=== PATIENT | female | born 1940 | race Caucasian/White ===

== ENCOUNTER → 2017-03-08 | Outpatient (CLI) | payer MEDICARE, BC ==
[~2017-03-08] MED LIST: ASPI-110 PO; PRIL20TA2 PO; SACC1CAP3 PO; SIMV20TA PO; VITA10004 PO
[2017-03-08 10:33] LABS: BLOOD, URINE NEG (NEG); COMMENT (UR) CULT NOT INDICATED; CULTURE IF INDICATED CULT NOT INDICATED; GLUCOSE,URINE NEG (NEG); GRANULAR CAST, URINE 1 /lpf; HYALINE CAST, URINE 4 /lpf (RARE); KETONE, URINE NEG (NEG); MUCUS URINE MOD /lpf (OCC); NITRITE,URINE NEG (NEG); PH, URINE 5.5 (5.0-8.5); SQUAMOUS EPITHELIAL CELL URINE <1 /hpf (0-5); URINE COLOR YELLOW (YELLW/STRAW)
== END ==
LOC: CPRE 09:05
PROVIDERS: ATTEND Orthopaedic Surgery Orthopaedic Trauma
DX: Z01.812 Encounter for preprocedural laboratory examination (principal); M79.609 Pain in unspecified limb; Z79.01 Long term (current) use of anticoagulants; Z01.818 Encounter for other preprocedural examination; Z13.9 Encounter for screening, unspecified; Z96.60 Presence of unspecified orthopedic joint implant
CPT/HCPCS: 81001

== ENCOUNTER 2017-03-19 05:14 | Inpatient (IN) | payer MEDICARE, BC ==
[~2017-03-19] VITALS: Ht 175.3 cm; Wt 101.6 kg
[2017-03-19] MEDS ORDERED: METOPROLOL TARTRATE 25 MG TAB PO PRN (05:45)
[2017-03-19] MEDS ORDERED: CHLORHEXIDINE GLUCONATE 4% SOLN 120 ML BTL TOPICAL SCH (05:45)
[2017-03-19] MEDS ORDERED: SODIUM CHLORID 0.9% 500 ML IV PRN (05:45)
[2017-03-19] MEDS ORDERED: INSULIN HUMAN REGULAR 1,000 UNITS/10 ML VIAL SQ PRN (05:45)
[2017-03-19] MEDS ORDERED: CHLORHEXIDINE GLUCONATE 2 % 1 PACK (2 CLOTHS) TOPICAL PRN (05:45)
[2017-03-19] MEDS ORDERED: POVIDONE IODINE 5% (ANTISEPSIS KIT) 4 APPLICATIONS EACH NARE PRN (05:45)
[2017-03-19] MEDS ORDERED: ceFAZolin 2 GM PREMIX 50 ML IV SCH (05:45)
[2017-03-19] MEDS ORDERED: VANCOMYCIN 1000 MG/NS 250 ML (for <70 kg) IV SCH ×2 (05:45)
[2017-03-19] MEDS ORDERED: LACTATED RINGER'S 1000 ML IV PRN (05:45)
[2017-03-19 05:53] VITALS: BP 171/86; PULSE 78; RESP 16; TEMP 97.8; O2SAT 97
[2017-03-19] MEDS ORDERED: EXPAREL PERI-ARTICULAR INJECTION (TOTAL VOL. 60 ML) P-ARTICULR SCH ×2 (07:00)
[2017-03-19] MEDS ORDERED: TRANEXAMIC ACID IV SCH (07:00)
[2017-03-19] MEDS ORDERED: SODIUM CHLORIDE 0.9% IV SCH (07:00)
== END 2017-03-19 06:20 | disposition home or self-care (01) | DRG 554 ==
LOC: HSDI 05:14
PROVIDERS: ADMIT Orthopaedic Surgery Orthopaedic Trauma; ATTEND Orthopaedic Surgery Orthopaedic Trauma
DX: M16.12 Unilateral primary osteoarthritis, left hip (principal); R23.8 Other skin changes; Z53.8 Procedure and treatment not carried out for other reasons
CPT/HCPCS: 99211; C9290; G0463

== ENCOUNTER → 2017-04-05 | Outpatient (CLI) | payer MEDICARE, BC ==
[~2017-04-05] MED LIST changes: -ASPI-110 PO; +ASPI-146 PO; +ASPI1TAB57 PO; +FLUT1SPR5 EACH NARE; +HYDR-3583 PO; +WALKER/ADULT/FO1 MIS; +XARE10TA PO
[2017-04-05 11:04] LABS: AUTOMATED NEUTROPHIL # 5.3 TH/MM3 (1.8-7.7); BASOPHIL % 0.4 % (0.0-2.0); EOSINOPHIL # 0.1 TH/MM3 (0-0.4); EOSINOPHIL % 0.9 % (0.0-4.0); HEMATOCRIT 44.3 % (35.0-46.0); HEMO FLAGS DIFF FINAL; LYMPH % 27.5 % (9.0-44.0); LYMPHOCYTE # 2.3 TH/MM3 (1.0-4.8); MEAN CELL VOLUME 86.9 FL (80.0-100.0); MEAN CORPUSCULAR HEMOGLOBIN 29.1 PG (27.0-34.0); MEAN CORPUSCULAR HGB CONC 33.4 % (32.0-36.0); MONO % 7.1 % (0.0-8.0); NEUT % 64.1 % (16.0-70.0); PLATELET COUNT 282 TH/MM3 (150-450); RED BLOOD COUNT 5.09 MIL/MM3 (4.00-5.30); RED CELL DISTRIBUTION WIDTH 13.5 % (11.6-17.2); WHITE BLOOD COUNT 8.3 TH/MM3 (4.0-11.0)
[2017-04-05 11:17] LABS: APTT (PATIENT) 25.6 SEC (24.3-30.1); PROTHROMBIN TIME - PATIENT 10.5 SEC (9.8-11.6)
[2017-04-05 11:29] LABS: BLOOD, URINE NEG (NEG); COMMENT (UR) CULT NOT INDICATED; CULTURE IF INDICATED CULT NOT INDICATED; GLUCOSE,URINE NEG (NEG); KETONE, URINE NEG (NEG); MUCUS URINE FEW /lpf (OCC); NITRITE,URINE NEG (NEG); PH, URINE 5.5 (5.0-8.5); SQUAMOUS EPITHELIAL CELL URINE <1 /hpf (0-5); URINE COLOR YELLOW (YELLW/STRAW)
[2017-04-05 11:32] LABS: BICARBONATE 27.2 MEQ/L (21.0-32.0)
== END ==
LOC: CPRE 10:13
PROVIDERS: ATTEND Orthopaedic Surgery Orthopaedic Trauma
DX: Z01.812 Encounter for preprocedural laboratory examination (principal); Z01.810 Encounter for preprocedural cardiovascular examination; Z01.811 Encounter for preprocedural respiratory examination; Z01.818 Encounter for other preprocedural examination; Z13.9 Encounter for screening, unspecified; Z79.01 Long term (current) use of anticoagulants; Z96.60 Presence of unspecified orthopedic joint implant; M79.609 Pain in unspecified limb
CPT/HCPCS: 36415; 80048; 81001; 85025; 85610; 85730

== ENCOUNTER 2017-04-18 05:15 | Inpatient (IN) | payer MEDICARE, BC ==
[~2017-04-18] VITALS: Ht 175.3 cm; Wt 98.9 kg
[~2017-04-18 05:15] MED LIST changes: -ASPI-146 PO; -HYDR-3583 PO; -WALKER/ADULT/FO1 MIS; -XARE10TA PO
[2017-04-18] MEDS ORDERED: SODIUM CHLORID 0.9% 500 ML IV PRN (05:45)
[2017-04-18] MEDS ORDERED: CHLORHEXIDINE GLUCONATE 4% SOLN 120 ML BTL TOPICAL SCH (05:45)
[2017-04-18] MEDS ORDERED: POVIDONE IODINE 5% (ANTISEPSIS KIT) 4 APPLICATIONS EACH NARE PRN (05:45)
[2017-04-18] MEDS ORDERED: VANCOMYCIN 1000 MG/NS 250 ML (for <70 kg) IV SCH ×2 (05:45)
[2017-04-18] MEDS ORDERED: METOPROLOL TARTRATE 25 MG TAB PO PRN (05:45)
[2017-04-18] MEDS ORDERED: LACTATED RINGER'S 1000 ML IV PRN (05:45)
[2017-04-18] MEDS ORDERED: CHLORHEXIDINE GLUCONATE 2 % 1 PACK (2 CLOTHS) TOPICAL PRN (05:45)
[2017-04-18] MEDS ORDERED: ceFAZolin 2 GM PREMIX 50 ML IV SCH (05:45)
[2017-04-18] MEDS ORDERED: GENTAMICIN SULFATE 80 MG/2 ML VIAL ONE (06:32)
[2017-04-18] MEDS ORDERED: ACETAMINOPHEN 1000 MG/100 ML 100 ML IV ONE ×3 (06:42→11:30)
[2017-04-18] MEDS ORDERED: SODIUM CHLORIDE 0.9% IV SCH (07:00)
[2017-04-18] MEDS ORDERED: TRANEXAMIC ACID IV SCH (07:00)
[2017-04-18] MEDS ORDERED: EXPAREL PERI-ARTICULAR INJECTION (TOTAL VOL. 60 ML) P-ARTICULR SCH ×2 (07:00)
[2017-04-18] MEDS ORDERED: HYDR-3583 PO (08:30)
[2017-04-18] MEDS ORDERED: WALKER/ADULT/FO1 MIS (08:30)
[2017-04-18] MEDS ORDERED: ASPI-146 PO (08:30)
[2017-04-18] MEDS ORDERED: XARE10TA PO (08:30)
[2017-04-18] MEDS: PRAVASTATIN SOD 40 MG TAB PO SCH (09:00)
[2017-04-18] MEDS: PANTOPRAZOLE SOD 20 MG DELAYED RELEASE TAB PO SCH (09:00)
[2017-04-18] MEDS: CYANOCOBALAMIN 1,000 MCG TAB PO SCH (09:00)
[2017-04-18] MEDS ORDERED: NON-FORMULARY DRUG (Saccharomyces Boulardii (Probiotic) 250 MG) PO SCH (09:00)
--- NOTE | 2017-04-18 09:06 | PD.OP ---
cc: Erick Hernandez MD Operative Report Date of Surgery: Apr 18, 2017 Preoperative Diagnosis: Severe left hip osteoarthritis Postoperative Diagnosis: Same Procedure: Total hip arthroplasty via anterior approach Anesthesia: Gen. Surgeon: Erick Hernandez Patent Law Specialist(s): SYLVIA Jurado PA-C The surgical procedure was assisted by my physician assistant broker. My P.A. presence was necessary throughout this case for the manipulation and positioning of the surgical extremity. My P.A. was assisting me throughout the duration of this procedure. The skill set of a physician assistant broker was medically necessary to complete this procedure. During the surgical case the surgical garment assembly supervisor was working at the back table and the physician assistant broker was directly assisting me. Operation and Findings: PLAN OF ACTIVITY Weight bear as tolerated. DRAINS: 7-mm VICKI drain. IMPLANTS USED DePuy Corail size 11 collared stem with a size [52] Brashear Gription cup, [52/ 36] Altrx poly liner, and a [36+1 metal head. DETAILS OF PROCEDURE: This patient has a long history of hip pain. Patient was found to have severe osteoarthritis. The patient had radiographic evidence of joint space narrowing with [id number] arthritis and osteophytes around the acetabulum as well as the femoral head. There was also some cystic changes. The patient failed conservative treatment with pain medications, anti-inflammatories, physical therapy, assistive devices including a cane, as well as therapeutic injection of the hip. Patient's hip arthritis was limiting his ability to ambulate and perform activities of daily living. The patient wished to proceed with surgery and informed consent was obtained. Operative site was marked. I discussed both posterior approach and anterior approach with the patient and decision was made for anterior approach. Patient was brought to OR and placed on OR table. IV sedation and general anesthesia was administered by anesthesiologist. Patient positioned on a Marizol table and was given IV antibiotics. Time-out procedure was performed. The hip and thigh were prepped with alcohol followed by Hibiclens. The thigh was draped in the usual sterile fashion. Clean Air Suite was used for this procedure. The procedure began with a 5-inch incision over the anterolateral thigh. Subcutaneous tissue was dissected with Bovie. The fascia over the tensa fasciae latae was incised. Care was taken to avoid injury to the lateral femoral cutaneous nerve. The tensor muscle was retracted laterally. Sartorius was retracted medially. Retractors were now placed. The reflected head of the rectus is now elevated. A capsulotomy was performed over the anterior head capsule. Sutures were placed to help retract the capsule. At this point the femoral head and neck were identified. With soft tissue protected, oscillating saw was used to make a cut through the femoral neck, the femoral head was now removed. At this point attention was turned to preparation of the acetabulum. The labrum was excised. The acetabulum was sequentially reamed up to size [52]. A Brashear cup was now placed. Fluoroscopy was used to aid in identification of appropriate version. Cup was fully impacted and found to have excellent fit. Hole eliminator was now placed. The liner was now impacted into the cup. At this point the hip was externally rotated. A hook was placed around the proximal femur. The capsule was released off the lateral and medial femur. The hip was now extended and adducted. Retractors were placed around the proximal femur to allow for exposure. A box osteotome was used to remove the lateral cortex of the femoral neck. A broach was used to help lateralize the prosthesis. Canal finder was used to create a path down the canal. Next, the canal was sequentially broached up to size [11]. This was found to be an excellent fit. Calcar planer was placed. A standard head was placed, and the hip was reduced. The hip was found to have excellent stability with good range of motion. The leg lengths were measured under fluoroscopy and found to be equal compared to preoperatively. Trial broach was removed. The Corail stem was opened. Stem was fully impacted into the proximal femur in appropriate version. The femoral head was placed. The hip was again reduced. Fluoroscopy confirmed excellent alignment of prosthesis. The wound was thoroughly irrigated and capsule was closed with #1 Vicryl. The fascia over the tensor fasciae muscle was closed with #1 Vicryl, subcutaneous tissue was closed with 3-0 Vicryl and the skin was closed with charles and Dermabond skin closure. The capsule layers, muscle, and subcutaneous tissue were injected with a mixture of saline and bupivicaine. Dressings were applied. The patient was transferred to Recovery Room in stable condition. Erick Hernandez MD Apr 18, 2017 09:06
[2017-04-18] MEDS ORDERED: DO NOT ADM ANY ANTICOAGULANT DRUGS PRN (09:33)
[2017-04-18] MEDS: LACTATED RINGER'S 1000 ML INJ 1,000 ML IV SCH ×2 (09:50→22:30)
[2017-04-18] MEDS ORDERED: *morphine SULFATE 8 MG/ML PERIprocedure ONLY ONE ×3 (09:55→10:18)
[2017-04-18] MEDS ORDERED: SODIUM CHLORIDE 0.9% FLUSH 5 ML FLUSH IVF PRN (10:00)
[2017-04-18] MEDS ORDERED: ONDANSETRON HCL 4 MG/2 ML VIAL IVP PRN (10:00)
[2017-04-18] MEDS ORDERED: MORPHINE SULFATE 4 MG/ML INJ IV PUSH PRN (10:00)
[2017-04-18] MEDS ORDERED: NALOXONE HCL 0.4 MG/ML AMP IV PUSH PRN (10:00)
[2017-04-18] MEDS ORDERED: TRANEXAMIC ACID INJ 1,000 MG in SODIUM CHLORIDE 0.9% INJ 100 ML IV ONE (10:00)
[2017-04-18] MEDS ORDERED: Post-op Orders (for Pharmacy) MISC XX ONE (10:00)
--- NOTE | 2017-04-18 10:18 | RADRPT ---
EXAM DATE/TIME: 04/18/2017 08:26 [facility] COMPARISON: No previous studies available for comparison. INDICATIONS : Left total hip replacement MEDICAL HISTORY : None. SURGICAL HISTORY : None. ENCOUNTER: Initial ACUITY: 1 day PAIN SCORE: Non-responsive. LOCATION: Left Hip FINDINGS: A two view examination of the left hip was performed. Total left hip arthroplasty. Both the acetabula r and femoral components are currently positioned. No fracture. CONCLUSION: Appropriate postoperative appearance of the left hip status post total arthroplasty. Hemanth Villa MD on April 18, 2017 at 10:16 Board Certified Radiologist. This report was verified electronically.
--- NOTE | 2017-04-18 10:20 | RADRPT ---
EXAM DATE/TIME: 04/18/2017 09:55 [facility] COMPARISON: No previous studies available for comparison. INDICATIONS : Post left hip surgery. MEDICAL HISTORY : None. SURGICAL HISTORY : None. ENCOUNTER: Initial ACUITY: 1 day PAIN SCORE: 8/10 LOCATION: Left hip and pelvis FINDINGS: A lateral view of the left hip with AP pelvis was obtained. Left total hip arthroplasty. VICKI type drai n projects lateral to the femoral component. Femoral and acetabular components are appropriately posi tioned. No fracture. CONCLUSION: 1. Appropriate postoperative appearance of the left hip status post total arthroplasty. 2. VICKI type drain projects lateral to the proximal shaft of the femoral prostheses. Hemanth Villa MD on April 18, 2017 at 10:17 Board Certified Radiologist. This report was verified electronically.
[2017-04-18] MEDS: KETOROLAC TROMETHAMINE 30 MG/ML (IVP) VIAL IV PUSH SCH ×2 (10:21→21:53)
[2017-04-18] MEDS ORDERED: MIDAZOLAM HCL 2 MG/2 ML VIAL IV ONE (12:00)
[2017-04-18] MEDS ORDERED: GLYCOPYRROLATE 1 MG/5 ML SYRINGE IV PUSH ONE (12:00)
[2017-04-18] MEDS ORDERED: ONDANSETRON HCL 4 MG/2 ML VIAL IV PUSH ONE (12:00)
[2017-04-18] MEDS ORDERED: LIDOCAINE HCL 1% PF 5 ML AMPULE OTHER ONE (12:00)
[2017-04-18] MEDS ORDERED: NEOSTIGMINE 3 MG/3 ML SYR IV ONE (12:00)
[2017-04-18] MEDS ORDERED: DEXAMETHASONE SOD PHOS 4 MG/ML VIAL IV ONE (12:00)
[2017-04-18] MEDS ORDERED: ROCURONIUM INJ 50 MG/5 ML SYRINGE IV PUSH ONE (12:00)
[2017-04-18] MEDS ORDERED: PHENYLEPH/NS 1000 MCG/10 ML SYR IV ONE (12:00)
[2017-04-18] MEDS ORDERED: PROPOFOL 200 MG/20 ML AMP IV ONE (12:00)
[2017-04-18] MEDS ORDERED: ePHEDrine/NS 25 MG/5 ML SYR IV ONE (12:00)
[2017-04-18 13:00] VITALS: BP 142/74; PULSE 70; RESP 18; TEMP 97; O2SAT 94
[2017-04-18] MEDS: ceFAZolin 2 GM PREMIX 50 ML IV SCH ×2 (13:28→20:52)
[2017-04-18] MEDS: ACETAMINOPHEN/HYDROcodone 325 MG/7.5 MG TAB PO PRN (13:53)
[2017-04-18] MEDS ORDERED: ACETAMINOPHEN/HYDROcodone 325 MG/7.5 MG TAB PO ONE (14:30)
[2017-04-18 16:15] VITALS: BP 133/70; PULSE 62; RESP 16; O2SAT 98
[2017-04-18] MEDS: VANCOMYCIN INJ 1,000 MG in SODIUM CHLOR 0.9% 250 ML INJ 250 ML IV SCH (17:08)
[2017-04-18 19:20] VITALS: BP 123/58; PULSE 69; RESP 16; TEMP 96.7; O2SAT 98
[2017-04-18] MEDS: SODIUM CHLORIDE 0.9% FLUSH 5 ML FLUSH IVF SCH (20:52)
[2017-04-18] MEDS: ACETAMINOPHEN/HYDROcodone 325 MG/10 MG TAB PO PRN (20:52)
[2017-04-18] MEDS: FLUTICASONE PROPIONATE 50 MCG/ACT 16 GM NASAL SPRAY NASAL SCH (21:53)
[2017-04-18 23:56] VITALS: BP 103/51; PULSE 72; RESP 16; TEMP 96.7; O2SAT 97
[2017-04-19] MEDS: ceFAZolin 2 GM PREMIX 50 ML IV SCH (02:39)
[2017-04-19 03:31] VITALS: BP 120/58; PULSE 67; RESP 17; TEMP 96.7; O2SAT 95
[2017-04-19] MEDS: ACETAMINOPHEN/HYDROcodone 325 MG/7.5 MG TAB PO PRN ×2 (06:04→12:06)
[2017-04-19] MEDS: VANCOMYCIN INJ 1,000 MG in SODIUM CHLOR 0.9% 250 ML INJ 250 ML IV SCH (06:05)
--- NOTE | 2017-04-19 06:45 | PD.ORT.PN ---
Subjective Subjective Remarks Resting comfortably. States she was able to get up to bedside commode yesterday. Son is in the room Objective Vitals Vital Signs Date Time Temp Pulse Resp B/P (MAP) Pulse Ox O2 Delivery O2 Flow Rate FiO2 04/19/17 03:31 96.7 67 17 120/58 (78) 95 04/18/17 23:56 96.7 72 16 103/51 (68) 97 04/18/17 19:20 96.7 69 16 123/58 (79) 98 04/18/17 16:15 62 16 133/70 (91) 98 04/18/17 13:00 97.0 70 18 142/74 (96) 94 04/18/17 12:30 97.8 64 16 156/70 (98) 94 Room Air 04/18/17 12:00 61 16 148/68 (94) 95 Nasal Cannula 1 04/18/17 11:30 67 16 131/74 (93) 98 Nasal Cannula 2 04/18/17 11:15 67 15 135/77 (96) 98 Nasal Cannula 2 04/18/17 11:00 68 15 127/74 (91) 98 Nasal Cannula 2 04/18/17 10:45 65 15 139/69 (92) 98 Nasal Cannula 2 04/18/17 10:30 66 18 141/69 (93) 98 Nasal Cannula 2 04/18/17 10:15 63 16 132/66 (88) 98 Nasal Cannula 3 04/18/17 10:00 62 16 112/59 (76) 98 Nasal Cannula 3 04/18/17 09:45 62 16 126/65 (85) 98 Nasal Cannula 3 04/18/17 09:38 97.5 63 16 132/63 (86) 97 Nasal Cannula 3 I/O 04/18/17 04/18/17 04/18/17 04/19/17 04/19/17 04/19/17 07:00 15:00 23:00 07:00 15:00 23:00 Intake Total 1960 ml 1083 ml 530 ml Output Total 325 ml 90 ml Balance 1635 ml 993 ml 530 ml Intake Oral 480 ml 480 ml IV Total 160 ml 603 ml 50 ml Other 1800 ml Output Drainage Total 75 ml 90 ml Estimated Blood Loss 250 ml # Voids 3 2 # Bowel Movements 0 0 Imaging Last 72 hours Impressions Hip and Pelvis X-Ray 04/18/17 0000 Signed Impressions: Service Date/Time: April 09:55 - CONCLUSION: 1. Appropriate postoperative appearance of the left hip status post total arthroplasty. 2. VICKI type drain projects lateral to the proximal shaft of the femoral prostheses. Hemanth Villa MD Hip X-Ray 04/18/17 0000 Signed Impressions: Service Date/Time: April 08:26 - CONCLUSION: Appropriate postoperative appearance of the left hip status post total arthroplasty. Hemanth Villa MD Objective Remarks Left lower extremity: Clean dry dressings intact. Drain was removed accidentally overnight. Mild drainage. Compartments soft. Distally intact sensation with good capillary refills with active dorsiflexion plantar flexion of foot Assessment & Plan Assessment and Plan Left total hip arthroplasty anterior approach POD 1 Daily dressing changes beginning today with dry dressings over incision and Xeroform over drain site Physical therapy twice Discharge to home today if doing well with physical therapy and pain controlled Lovenox Incentive spirometry Follow-up Dr. Hernandez or PA in 2 weeks Brett Booth Jr. Apr 19, 2017 06:45
[2017-04-19 07:03] LABS: HEMATOCRIT 32.4 % (35.0-46.0); REVIEW FLAG FINAL
[2017-04-19 08:00] VITALS: BP 136/60; PULSE 66; RESP 20; TEMP 96; O2SAT 96
[2017-04-19] MEDS: PRAVASTATIN SOD 40 MG TAB PO SCH (08:34)
[2017-04-19] MEDS: CYANOCOBALAMIN 1,000 MCG TAB PO SCH (08:34)
[2017-04-19] MEDS: PANTOPRAZOLE SOD 20 MG DELAYED RELEASE TAB PO SCH (08:34)
[2017-04-19] MEDS: ENOXAPARIN SODIUM 40 MG/0.4 ML SYRINGE SQ SCH (08:35)
[2017-04-19] MEDS: KETOROLAC TROMETHAMINE 30 MG/ML (IVP) VIAL IV PUSH SCH ×2 (08:36→20:58)
[2017-04-19] MEDS: LACTATED RINGER'S 1000 ML INJ 1,000 ML IV SCH (08:37)
[2017-04-19] MEDS: SODIUM CHLORIDE 0.9% FLUSH 5 ML FLUSH IVF SCH ×2 (08:39→21:00)
--- NOTE | 2017-04-19 09:01 | HHI.FF ---
Face to Face Verification Diagnosis: (1) Status post total hip replacement, left Physical Therapy Gait training Hip: Total hip, Protocol: Left, Progress to weight bearing Left LE Weight Bearing: WB as tolerated Nursing Dressing Changes: Daily dressing change, Coverderm/Primapore (begin adding xeroform POD 10) I have seen patient Veronica Charlton on 04/19/17. My clinical findings support the need for the requested home health care services because: Ltd mobility - disease progression I certify that my clinical findings support that this patient is homebound because: Post-op weakness Chago Liu Apr 19, 2017 09:01
[2017-04-19] MEDS ORDERED: INFLUENZA VIRUS VACCINE (QUADRIVALENT) 0.5 ML SYR IM ONE (10:00)
[2017-04-19 12:00] VITALS: BP 109/53; PULSE 73; RESP 20; TEMP 95.8; O2SAT 97
[2017-04-19 13:06] VITALS: O2SAT 98
[2017-04-19 16:00] VITALS: BP 112/62; PULSE 75; RESP 18; TEMP 97.2; O2SAT 96
[2017-04-19] MEDS: ACETAMINOPHEN/HYDROcodone 325 MG/10 MG TAB PO PRN ×2 (16:56→20:58)
[2017-04-19 20:00] VITALS: BP 121/55; PULSE 72; RESP 17; TEMP 97.5; O2SAT 97
[2017-04-19] MEDS: DOCUSATE SODIUM 100 MG CAP PO SCH (20:57)
[2017-04-19] MEDS: FLUTICASONE PROPIONATE 50 MCG/ACT 16 GM NASAL SPRAY NASAL SCH (20:59)
[2017-04-20] VITALS: BP 138/69; PULSE 84; RESP 16; TEMP 97.5; O2SAT 96
[2017-04-20] MEDS: ACETAMINOPHEN/HYDROcodone 325 MG/10 MG TAB PO PRN ×4 (05:11→15:51)
--- NOTE | 2017-04-20 07:13 | PD.ORT.PN ---
Subjective Subjective Remarks Resting comfortably. States she was able to get up to bedside commode yesterday. He came lightheaded after standing for a few seconds Son is in the room Objective Vitals Vital Signs Date Time Temp Pulse Resp B/P (MAP) Pulse Ox O2 Delivery O2 Flow Rate FiO2 04/20/17 00:00 97.5 84 16 138/69 (92) 96 04/19/17 20:00 97.5 72 17 121/55 (77) 97 04/19/17 16:00 97.2 75 18 112/62 (79) 96 04/19/17 13:06 98 21 04/19/17 12:00 95.8 73 20 109/53 (71) 97 04/19/17 08:00 96.0 66 20 136/60 (85) 96 I/O 04/19/17 04/19/17 04/19/17 04/20/17 04/20/17 04/20/17 07:00 15:00 23:00 07:00 15:00 23:00 Intake Total 530 ml 600 ml 180 ml Balance 530 ml 600 ml 180 ml Intake Oral 480 ml 600 ml 180 ml IV Total 50 ml # Voids 2 3 3 # Bowel Movements 0 0 Result Diagram: 04/19/17 0553 Imaging Last 72 hours Impressions Hip and Pelvis X-Ray 04/18/17 0000 Signed Impressions: Service Date/Time: April 09:55 - CONCLUSION: 1. Appropriate postoperative appearance of the left hip status post total arthroplasty. 2. VICKI type drain projects lateral to the proximal shaft of the femoral prostheses. Hemanth Villa MD Hip X-Ray 04/18/17 0000 Signed Impressions: Service Date/Time: April 08:26 - CONCLUSION: Appropriate postoperative appearance of the left hip status post total arthroplasty. Hemanth Villa MD Objective Remarks Left lower extremity: Clean dry dressings intact.. Mild drainage. Compartments soft. Distally intact sensation with good capillary refills with active dorsiflexion plantar flexion of foot Assessment & Plan Assessment and Plan Left total hip arthroplasty anterior approach POD 2 Daily dressing changes with dry dressings over incision and Xeroform over drain site Physical therapy twice Discharge to home today if doing well with physical therapy and pain controlled Lovenox Incentive spirometry Follow-up Dr. Hernandez or PA in 2 weeks Brett Booth Jr. Apr 20, 2017 07:13
[2017-04-20 07:35] VITALS: BP 122/69; PULSE 73; RESP 16; TEMP 98.1; O2SAT 94
[2017-04-20] MEDS: PANTOPRAZOLE SOD 20 MG DELAYED RELEASE TAB PO SCH (08:47)
[2017-04-20] MEDS: DOCUSATE SODIUM 100 MG CAP PO SCH (08:47)
[2017-04-20] MEDS: ENOXAPARIN SODIUM 40 MG/0.4 ML SYRINGE SQ SCH (08:47)
[2017-04-20] MEDS: PRAVASTATIN SOD 40 MG TAB PO SCH (08:47)
[2017-04-20] MEDS: CYANOCOBALAMIN 1,000 MCG TAB PO SCH (08:47)
[2017-04-20] MEDS: SODIUM CHLORIDE 0.9% FLUSH 5 ML FLUSH IVF SCH (08:48)
[2017-04-20] MEDS ORDERED: MAGNESIUM HYDROXIDE SUSP 30 ML CUP PO PRN (11:15)
[2017-04-20 12:00] VITALS: BP 141/67; PULSE 70; RESP 16; TEMP 97.9; O2SAT 97
[2017-04-20] MEDS ORDERED: BISACODYL 10 MG SUPP RECTAL SCH (12:00)
[2017-04-20] MEDS: LACTATED RINGER'S 1000 ML INJ 1,000 ML IV SCH (12:00)
[2017-04-20] MEDS ORDERED: BISACODYL 10 MG SUPP RECTAL PRN (12:30)
[2017-04-20 12:50] VITALS: O2SAT 93
[2017-04-21] MEDS ORDERED: BISACODYL 10 MG SUPP RECTAL SCH (09:00)
== END 2017-04-20 15:53 | disposition home health service (06) | DRG 470 ==
LOC: HSDI 05:15 → N06A 13:24
PROVIDERS: ADMIT Orthopaedic Surgery Orthopaedic Trauma; ATTEND Orthopaedic Surgery Orthopaedic Trauma
PROC: 0SRB02A Replacement of Left Hip Joint with Metal on Polyethylene Synthetic Substitute, Uncemented, Open Approach (ICD-10-PCS; principal; 2017-04-18 06:52)
DX: M16.12 Unilateral primary osteoarthritis, left hip (principal)
CPT/HCPCS: 73501; 73502; 76000; 85014; 85018; 86850; 86900; 86901; C1776; C9290; J0131; J0690; J1100; J1580; J1650; J1885; J2250; J2270; J2370; J2405; J2710; J3010; J3370; J7050; J7120